=== PATIENT | male | born 1970 | race Caucasian/White ===

== ENCOUNTER 2017-02-04 18:43 | Emergency (ER) | payer OTHER ==
[2017-02-04 19:29] LABS: HEMOGLOBIN 13.9 gm/dl (14.0-17.5); RED BLOOD COUNT 4.63 M/UL (4.20-5.50)
[2017-02-04 19:44] LABS: BUN/CREATININE RATIO 17 (0-10)
== END 2017-02-04 23:02 | disposition left against medical advice (07) ==
LOC: ER1 18:43
PROVIDERS: Emergency Medicine
DX: R07.9 Chest pain, unspecified (principal); R06.02 Shortness of breath; R53.83 Other fatigue; I25.10 Atherosclerotic heart disease of native coronary artery without angina pectoris; F17.210 Nicotine dependence, cigarettes, uncomplicated; Z79.899 Other long term (current) drug therapy
CPT/HCPCS: 36415; 71010; 80053; 82550; 82553; 83874; 83880; 84484; 85025; 93005; 99285

== ENCOUNTER 2021-04-20 11:28 | Emergency (ER) | payer BC ==
[~2021-04-20 11:28] MED LIST: FLEXERIL 10 MG10 MG PO; FLOVENT 220.1 GM/INH INH; IBUPROFEN800 MG PO; MEDROL DOSEPAK 24 MG PO; NAPROSYN500 MG PO; NAPROXEN500 MG PO; PREDNISONE20 MG PO; PROAIR DIGIHAL90 MCG INH; TESSALON PERLE100 MG PO; VENTOLIN HFA 66.7 GM INH; VIBRAMYCIN100 MG PO; ZITHROMAX250 MG PO
[2021-04-20] MEDS ORDERED: DELSYM30 MG/5 ML PO (14:47)
[2021-04-20] MEDS ORDERED: SUDAFED 60 MG T60 MG PO (14:47)
[2021-04-20] MEDS ORDERED: MEDROL DOSEPAK 24 MG PO (14:47)
[2021-04-20] MEDS ORDERED: FLONASE 0.05% N16 GM (14:47)
== END 2021-04-20 14:49 | disposition home or self-care (01) ==
LOC: ER1 11:28
DX: R05 Cough (principal); R51.9 Headache, unspecified; F17.200 Nicotine dependence, unspecified, uncomplicated; Z20.822 Contact with and (suspected) exposure to COVID-19; Z90.89 Acquired absence of other organs
CPT/HCPCS: 71045; 87081; 87880; 99284; U0003

== ENCOUNTER 2022-02-09 15:57 | Emergency (ER) | payer BC ==
[~2022-02-09 15:57] MED LIST changes: +DELSYM30 MG/5 ML PO; +FLONASE 0.05% N16 GM; +SUDAFED 60 MG T60 MG PO
[2022-02-09] MEDS ORDERED: DOXYCYCLINE HY100 MG PO (16:45)
== END 2022-02-09 17:04 | disposition home or self-care (01) ==
LOC: ER1 15:57
DX: L02.415 Cutaneous abscess of right lower limb (principal); I10 Essential (primary) hypertension; F17.200 Nicotine dependence, unspecified, uncomplicated
CPT/HCPCS: 10060; 99283